=== PATIENT | female | born 1970 | race Two or more races ===

== ENCOUNTER 2023-12-22 11:53 | Emergency (ER) | payer BC, OTHER ==
[~2023-12-22] VITALS: Ht 170.2 cm; Wt 59.0 kg
[2023-12-22 13:23] VITALS: BP 139/61; PULSE 89; RESP 16; TEMP 97; O2SAT 96
[2023-12-22] MEDS: TETANUS-DIPTH-ACEL PERTUSSIS 0.5ML SYR Tdap IM ONE (14:17)
[2023-12-22] MEDS: LIDOCAINE 1% HCL (LOCAL ANESTH.) INJ 20ML MDV ID ONE (15:00)
== END 2023-12-22 14:50 | disposition home or self-care (01) ==
LOC: ER 11:53
DX: S91.312A Laceration without foreign body, left foot, initial encounter (principal); W25.XXXA Contact with sharp glass, initial encounter; Y93.89 Activity, other specified; Y92.89 Other specified places as the place of occurrence of the external cause; Y99.8 Other external cause status
CPT/HCPCS: 12001; 90471; 90715; J2001